=== PATIENT | male | born 2000 | race Caucasian/White ===

== ENCOUNTER 2021-02-21 00:40 | Emergency (ER) | payer OTHER ==
[2021-02-21] MEDS ORDERED: IBUPROFEN800 MG PO (01:51)
== END 2021-02-21 01:58 | disposition home or self-care (01) ==
LOC: ER1 00:40
DX: S86.812A Strain of other muscle(s) and tendon(s) at lower leg level, left leg, initial encounter (principal); F17.290 Nicotine dependence, other tobacco product, uncomplicated; W22.8XXA Striking against or struck by other objects, initial encounter
CPT/HCPCS: 73590; 99283

== ENCOUNTER → 2021-02-21 | Outpatient (CLI) | payer OTHER ==
[~2021-02-21] MED LIST: IBUPROFEN800 MG PO
== END ==
LOC: US 09:39
DX: M79.605 Pain in left leg (principal)
CPT/HCPCS: 93971

== ENCOUNTER 2021-07-02 23:25 | Emergency (ER) | payer OTHER ==
[2021-07-02 23:47] LABS: HEMOGLOBIN 14.6 gm/dl (14.0-17.5); RED BLOOD COUNT 4.88 M/UL (4.20-5.50); WHITE BLOOD COUNT 7.9 K/UL (4.5-11.0)
[2021-07-03 00:07] LABS: BUN/CREATININE RATIO 13 (0-10)
[2021-07-03] MEDS ORDERED: OMNICEF 300 MG300 MG PO (02:14)
== END 2021-07-03 02:22 | disposition home or self-care (01) ==
LOC: ER1 23:25
PROVIDERS: Physician Assistant
DX: R10.11 Right upper quadrant pain (principal); R10.31 Right lower quadrant pain; R10.811 Right upper quadrant abdominal tenderness; R10.813 Right lower quadrant abdominal tenderness; J18.9 Pneumonia, unspecified organism; F17.290 Nicotine dependence, other tobacco product, uncomplicated
CPT/HCPCS: 80053; 81001; 83690; 85025; 87086; 99284; Q9967

== ENCOUNTER 2021-07-18 01:06 | Emergency (ER) | payer OTHER ==
[~2021-07-18 01:06] MED LIST changes: +OMNICEF 300 MG300 MG PO
[2021-07-18] MEDS ORDERED: IBUPROFEN600 MG PO (03:14)
== END 2021-07-18 03:26 | disposition home or self-care (01) ==
LOC: ER1 01:06
DX: S06.0X0A Concussion without loss of consciousness, initial encounter (principal); S60.221A Contusion of right hand, initial encounter; F17.290 Nicotine dependence, other tobacco product, uncomplicated; Y04.0XXA Assault by unarmed brawl or fight, initial encounter
CPT/HCPCS: 70450; 73130; 99284